=== PATIENT | female | born 1975 | race Caucasian/White ===

== ENCOUNTER 2020-12-07 13:47 | Emergency (ER) | payer OTHER ==
[2020-12-07 14:32] VITALS: BP 136/79; PULSE 96; TEMP 99; BMI 22.0
[2020-12-07 15:17] LABS: CALCIUM 9.2 mg/dl (8.5-10); CREATININE 0.5 mg/dl (0.55-1.3)
== END 2020-12-07 16:44 | disposition home or self-care (01) ==
LOC: FER 13:47
DX: R33.9 Retention of urine, unspecified (principal)
CPT/HCPCS: 36415; 80048; 81003; 87086; 99284-25